=== PATIENT | female | born 1945 | race Caucasian/White ===

== ENCOUNTER 2018-01-14 06:17 | Inpatient (IN) | payer OTHER ==
[2018-01-01 11:41] LABS: HEMATOCRIT 42.6 % (37.0-47.0); HEMOGLOBIN 14.1 gm/dL (12.0-15.0); MCH 29.5 pg (26.0-34.0); MCV 89.3 fL (80.0-100.0); MPV 9.5 fl. (7.2-11.1); RBC 4.77 mil/uL (4.20-5.00); RDW-CV 14.6 % (10.5-14.5); WBC 6.5 thou/uL (4.0-11.0)
[2018-01-01 11:58] LABS: URINE BILIRUBIN NEGATIVE (Negative); URINE BLOOD NEGATIVE (Negative); URINE CLARITY CLEAR; URINE COLOR YELLOW; URINE GLUCOSE-RANDOM NEGATIVE (Negative); URINE KETONES NEGATIVE (Negative); URINE LEUKOCYTES-REFLEX NEGATIVE (Negative); URINE NITRITE-REFLEX NEGATIVE (Negative); URINE PROTEIN NEGATIVE (Negative); URINE UROBILINOGEN 0.2 E.U./dl (0.2-1.0)
[2018-01-01 12:08] LABS: ALBUMIN 3.9 g/dL (3.4-5.0); CALCIUM 9.1 mg/dL (8.5-10.1); POTASSIUM 3.9 mmol/L (3.5-5.1); TOTAL BILIRUBIN 0.5 mg/dL (<0.1-1.0); TOTAL PROTEIN 7.4 g/dL (6.4-8.2)
--- NOTE | 2018-01-01 13:59 | EKG ---
[place] [address] ELECTROCARDIOGRAM REPORT Name: SEAN BHANDARI Room: PRE IN [facility]#: [id number] Admission: Attend Phys: Bambi Cailxto Discharge: Date of : 47 Report #: [id number] THIS REPORT FOR: //name// [facility] Test Date: 2018-01-01 Test Time: 09:55:45 Pat Name: SEAN BHANDARI Department: Room: Gender: F [employer] Car [employer]r: : 1945 Requested By: Jared Shaffer Order Number: [id number] Reading MD: Juanpablo Hicks Measurements Intervals [place] Rate: 62 P: -18 [place]: 213 QRS: -54 QRSD: 103 T: 42 QT: 405 QTc: 412 Interpretive Statements Sinus rhythm Left anterior fascicular block Probable left ventricular hypertrophy Baseline wander in lead(s) II,III,aVF No previous ECG available for comparison Electronically Signed On 01-01-2018 13:59:39 CDT by Juanpablo Hicks [email or web address] <ELECTRONICALLY SIGNED> By: Juanpablo Hicks MD, [facility] 01/01/18 1359 4 Juanpablo Hicks MD, FACC /EPI
[~2018-01-14] VITALS: Ht 167.6 cm; Wt 74.8 kg
[~2018-01-14 06:17] MED LIST: GLUCOSAMINE HC500 MG PO; IBUPROFEN 200200 M1 PO; MAG PO; RESTASIS1 EACH OPHTHALMIC; SYNTHROID50 MCG PO; UNICOMPLEX M TA1 TA1 PO; [UNRECOGNIZED DRUG - OTHER] PO
[2018-01-14] MEDS ORDERED: RESTASIS1 EACH OPHTHALMIC (11:50)
[2018-01-14 12:49] VITALS: BP 149/77
--- NOTE | 2018-01-14 17:02 | NUR ---
RECIEVED O.T. ORDERS. WILL DEFER TO P.T. AT THIS TIME. PLEASE ORDER FURTHER O.T. SERVICES IF NEEDED.
--- NOTE | 2018-01-14 17:02 | NUR ---
PATIENT ARRIVED TO THE UNIT FROM PACU AT 1620. ALERT AND OREINTED X4 BUT VERY SLEEPY. ASSESSMENT COMPLETED AND CHARTED. VSS ON ROOM 2 LITERS. CALL LIGHT PLACED WITHIN REACH. WILL CONTINUE TO MONITOR CLOSELY UNTIL FULLY AWAKE.
--- NOTE | 2018-01-14 17:48 | NUR ---
PATEINT REMAINS ALERT AND OREINTED X4. VSS ON 3 LITERS 02. FLUID INFUSED ORDERED. PAIN IS MINIMAL. NO COMPLAINTS OF NAUSEA OR SOA. HOURLY ROUNDS MAINTAINED, CALL LIGHT WITHIN REACH, NURSING WILL CONTINUE TO MONITOR.
[2018-01-14 20:00] VITALS: BP 150/64
[2018-01-15] VITALS: BP 145/72
[2018-01-15 04:00] VITALS: BP 135/52
[2018-01-15 04:08] LABS: HEMATOCRIT 36.5 % (37.0-47.0); HEMOGLOBIN 11.8 gm/dL (12.0-15.0)
--- NOTE | 2018-01-15 05:42 | NUR ---
PATIENT PROGRESSING TOWARDS GOALS. SHE WAS ABLE TO GET OUT OF BED WITH WALKER AND USE THE BATHROOM. SHE TOLERATED WELL. PAIN HAS BEEN MANAGED AND KEPT UNDER CONTROL. HEMOVAC DRAINAGE IN PLACE 150ML OUT THIS A.M. PT BROUGHT SNACKS FROM HOME AND HAS BEEN EATING THEM MOST OF SHIFT. SHE DID EXPERIENCE A EPISODE OF NAUSEA AND VOMITING. GAVE ZOLFRAN SUBSIDED. DAUGHTER STAYED IN ROOM OVER NIGHT. WILL CONTINUE TO MONITOR.
[2018-01-15 10:11] VITALS: BP 118/55
[2018-01-15] MEDS ORDERED: PERCOCET PO (11:30)
[2018-01-15] MEDS ORDERED: XARELTO10 MG PO (11:32)
[2018-01-15] MEDS ORDERED: METAMUCIL1 EAC1 PO (11:37)
[2018-01-15 11:57] VITALS: BP 118/55
--- NOTE | 2018-01-15 13:46 | NUR ---
PT.WAS SLEEPING BUT AWOKE WITH CM STARTED TALKING TO FAMILY. AND DAUGHTER LANI AT BEDSIDE. PT.'S WILL BE WITH HER AT HOME. SHE HAS 2 DAUGHTERS THAT WILL COME IN AND HELP HER IF NEEDED. SHE HAS A WALKER AND JYOTHI POTTY. WANTS TO USE HOME HEALTH FIRST AND THEN TRANSITION TO OUTPT. NORMALLY SHE IS INDEPENDENT AT HOME. CM CALLED IN PRESCRIPTION FOR XARELTO WRITTEN TO PT.'S PHARMACY. WILL CALL FOR COPAY IN 1/2 HR.
--- NOTE | 2018-01-15 15:10 | NUR ---
PT.CHOSE [employer] FOR HOME [facility] P.T. FAXED ORDERS, FACE TO FACE, FACE SHEET AND H&P TO CRISTIANO/[employer]. THEY WILL CALL PT.TOMORROW TO SET UP APPT.
--- NOTE | 2018-01-15 16:47 | NUR ---
ASSUMED CARE OF PATIENT AFTER MORNING REPORT AT APPROX 0750. ALERT AND ORIENTED X4. ASSESSMENT COMPLETED AND CHARTED. VSS ON ROOM AIR. NO COMPLAINTS OF NAUSEA OR SOA. PAIN HAS BEEN MANAGED WITH MEDICATION. PATIENT WORKED WELL WITH THERAPY AND IS CLEARED FOR SAFE DISCHARGE HOME. PATIENT DAUGHTER IN THE ROOM THIS AM, PATIENTS CAME THIS MORNING, THROUGHOUT THE DAY HE EXPRESSED THAT HE DID NOT WANT TO PAY A COPAY FOR HIS TO STAY ANOTHER DAY, REGARDLESS OF HOW SHE FELT ABOUT THAT. SPOKE WITH CASE MANAGEMENT AND IT WAS EXPLAINED THAT THERE WASNT GOING TO BE A DAILY COPAY FOR HER STAY HERE, HE STILL WANTS HER TO GO HOME. THIS NURSE REVIEWED DISCHARGE INFORMATION WITH FAMILY AND PATIENT SIGNED DISCHARGE SUMMARY BUT EXPRESSED THAT SHE WAS HAVING SEVERE PAIN IN HER LEG/GROIN AREA, GAVE PAIN MEDICATION AND AFTER 40 MINUTES THE PATIENT STILL EXPRESSED PAIN. THIS NURSE STATED THAT THE PATIENT SHOULD NOT BE GOING HOME WITHOUT HER PAIN UNDER CONTROL. HER AGGRESSIVELY STATED THAT "WE ARE GOING HOME!" THIS NURSE EXPLAINED THAT THE PATIENTS SAFETY AND COMFORT WERE MORE IMPORTANT THAN WORRYING ABOUT MONEY. HE STATES LOUDLY AND AGGRESSIVELY AGAIN THAT "WE ARE LEAVING TODAY, I DONT CARE WHAT THE DOCTOR SAYS." CALLED NURSING CAR RENTAL CLERK, CRISTIANO, AND EXPLAINED THE SITUATION TO HER AND ASKED HER TO SPEAK TO THE FAMILY. SHE DID AND THEY STATED THAT THEY WOULD STAY UNTIL HER PAIN WAS MORE CONTROLLED AND THEN THEY WERE LEAVING. HOURLY ROUNDS MAINTAINED, CALL LIGHT WITHIN REACH, NURSING WILL CONTINUE TO MONITOR.
--- NOTE | 2018-01-15 18:21 | NUR ---
PATIENTS PAIN HAS BEEN ADDRESSED. NURSING STAFF WALKED THE PATIENT IN THE ROOM, DOWN THE HALLWAY AND BACK TO HER ROOM AND SHE STATED THAT SHE FELT COMFORTABLE GOING HOME AND THAT SHE FELT HER PAIN COULD BE MANAGED. NURSING STAFF SPOKE TO THE PATIENT ALONE AND ASKED HER IF SHE WAS AFRAID TO STAY IN THE HOSPITAL BECAUSE IT WAS AGAINST HER HUSBANDS WISHES AND SHE STATED THAT SHE WAS NOT AFRAID AND FELT SAFE GOING HOME. PATIENT DISCHARGED AT 1800 WITH ALL PERSONAL BELONGINGS, PRESCRIPTIONS AND DISCHARGE INFORMATION. PATIENT WILL HAVE HER DAUGHTERS AVAILABLE TO ASSIST HER AT HOME, WELL HER .
--- NOTE | 2018-01-28 10:42 | OP ---
[address] [address] OPERATIVE REPORT Name: SEAN BHANDARI Room: [address] IN [facility]#: [id number] Admission: 01/14/18 Attend Phys: Bambi Calixto Discharge: 01/15/18 Date of : 47 Report #: [id number] THIS REPORT FOR: //name// CC: JOJO physician/PCP Jared Navas DATE OF SERVICE: 01/14/2018 PREOPERATIVE DIAGNOSIS: Left knee osteoarthritis. POSTOPERATIVE DIAGNOSIS: Left knee osteoarthritis. PROCEDURE: Left total knee arthroplasty. SURGEON: Jared Shaffer II, DO [employer] SUPERVISOR: MARCE Patel. ANESTHESIA: General endotracheal. ESTIMATED BLOOD LOSS: 50 mL ANTIBIOTICS: Ancef preoperatively. DRAINS: Medium Hemovac. COMPLICATIONS: None. CONDITION: Stable to recovery room. IMPLANTS: Listed in the operative record and progress note. BRIEF HISTORY: The patient was seen in the preoperative area. A preoperative H and P was performed. Site was marked, questions were answered. Risks and benefits were discussed with the patient in detail about surgery. The patient wished to proceed and assumed all risks. DESCRIPTION OF PROCEDURE: The patient was taken to the operative suite and placed supine on the operating table and given appropriate anesthesia. A well-padded tourniquet was applied to the upper thigh, which was inflated to 300 mmHg after gravity exsanguination. The operative knee was sterilely prepped and draped. Surgery began by a midline incision was carried down to the subcutaneous tissues. A medial parapatellar arthrotomy was performed and carried down to bone. The patella was then everted and excess soft tissue was removed from around the femur. The femoral cutting block was then applied, checked with a drop charles for rotational alignment, pinned in appropriate position [address] [address] OPERATIVE REPORT Name: SEAN BHANDARI Room: [address]#: [id number] Admission: 01/14/18 Attend Phys: Bambi Calixto Discharge: 01/15/18 Date of : 47 Report #: [id number] and appropriate cuts were made. A 4-in-1 cutting block was applied, checked for rotational alignment, pinned in appropriate position and appropriate cuts were made. The tibia was then exposed and excess meniscus was removed. Retractor was placed along the collateral ligaments. The tibial guide block was applied, pinned in appropriate position and appropriate cuts were made, checked with a drop charles for rotational alignment and slope and Tibia bone was removed. Tibial base plate was then applied, checked for rotational alignment and the drop charles pinned in appropriate position. The femur was then applied and box cut was reamed. This was then trialed with the appropriate spacer, which showed excellent fit and fill and excellent stability of the knee through all range of motion. The patella was then reamed in appropriate fashion and appropriately sized 3 peg holes were drilled and was then trialed. There was excellent flexion and excellent tracking of the patella within the groove. These trials were removed. The tibia was punched in appropriate fashion. Bone ends were cleansed with Pulsavac irrigation. Cement was mixed and applied to the final implants. These were then malleted into position and held the knee in extension and compressed to allow the cement to cure. After it cured, excess cement was removed utilizing a [place] and osteotome. The wound was then copiously irrigated and the final spacer was now in position. Tourniquet was deflated. Hemostasis obtained with electrocautery. The pain cocktail was injected. PRP gel was sprayed throughout the internal aspect of the knee. Medium Hemovac drain was applied. Capsule was closed with #2 FiberWire and 1 Vicryl in [id number]-[id number] fashion. Skin was closed with 2-0 Vicryl and running 3-0 Monocryl. Dermabond and sterile dressing applied. Leo wrap and PolarCare applied. The patient transported to recovery in stable condition. Counts were correct throughout the procedure. <ELECTRONICALLY SIGNED> By: Jared Shaffer II, DO 01/28/18 1042 [id number] [id number] Shaffer II, DO /nt
== END 2018-01-15 18:00 | disposition home health service (06) | DRG 470 ==
LOC: M.PRE 06:17 → M.TBA 11:30 → M.ORTHSURG 11:30 → M.PRE 12:45 → M.ORTHSURG 16:19
PROVIDERS: Orthopaedic Surgery; ADMIT Internal Medicine
PROC: 0SRD0J9 Replacement of Left Knee Joint with Synthetic Substitute, Cemented, Open Approach (ICD-10-PCS; principal; 2018-01-15)
DX: M17.12 Unilateral primary osteoarthritis, left knee (principal); E03.9 Hypothyroidism, unspecified; K58.9 Irritable bowel syndrome, unspecified; Z80.8 Family history of malignant neoplasm of other organs or systems